=== PATIENT | male | born 1965 | race Caucasian/White ===

== ENCOUNTER → 2018-09-22 | Outpatient (CLI) | payer OTHER ==
--- NOTE | 2018-09-22 12:09 | RAD ---
EXAM: Lumbar spine, 3 views. HISTORY: Pain. COMPARISON: None. FINDINGS: 3 views lumbar spine are obtained. There are 6 nonrib-bearing lumbar segments, a normal variant. For the purpose of this dictation, the last segment is considered L6. There is lumbar levoscoliosis. There is no significant listhesis. There is degenerative endplate remodeling with anterior spurring predominantly at L4-L5. There is slight disc space narrowing at to L6-S1. There is facet arthropathy at the lower lumbar levels. IMPRESSION: 1. Degenerative change within the lumbar spine, described above. 2. 6 nonrib-bearing lumbar vertebral segments, a normal variant. 3. Lumbar levoscoliosis. Electronically signed by: Raina Oneil MD (09/22/2018 12:07 PM) [facility]
--- NOTE | 2018-09-22 12:46 | RAD ---
Examination: 2 views of the right knee HISTORY: History of discectomy right knee COMPARISON: None available. FINDINGS: Changes of ACL reconstruction. Mild joint space loss identified in the medial, lateral, patellofemoral compartments. There is no acute fracture or dislocation identified. IMPRESSION: Mild tricompartmental degenerative changes. Electronically signed by: lGen Stephenson MD (09/22/2018 12:43 PM) [id number]
== END | disposition home or self-care (01) ==
LOC: RAD 09:23
PROVIDERS: ATTEND Family Medicine
DX: M47.816 Spondylosis without myelopathy or radiculopathy, lumbar region (principal); M17.11 Unilateral primary osteoarthritis, right knee; M41.86 Other forms of scoliosis, lumbar region; M48.07 Spinal stenosis, lumbosacral region; M46.06 Spinal enthesopathy, lumbar region; Z98.890 Other specified postprocedural states
CPT/HCPCS: 72100; 73560